=== PATIENT | female | born 1995 | race Caucasian/White ===

== ENCOUNTER 2022-09-16 14:49 | Emergency (ER) | payer OTHER ==
[2022-09-16] MEDS ORDERED: ALBUTEROL NEB 2.5 MG/3 ML INH STA (15:29)
[2022-09-16] MEDS ORDERED: DEXAMETHASONE 10 MG/ML VIAL PO STA (15:29)
[2022-09-16] MEDS ORDERED: CHERRY SYRUP 10 ML UDC PO ONE (15:29)
--- NOTE | 2022-09-16 15:35 | ED Physician Documentation ---
History of Present Illness - Stated complaint Stated Complaint: COUGH/THROAT PX - Chief complaint Chief Complaint: Resp - History obtained from History obtained from: Patient, Family - History of Present Illness Pain level max: 3 Pain level now: 3 - Additonal information Additional information: Patient is a 26-year-old female who presents to the emergency department complaining of cough x1 week. Nasal congestion, sore throat. She states coughing is increased over the past 2 days. She states she had fevers a few days ago but none recently. She does vape. Has never used inhalers. She feels like her chest is tight. She states that she has lost her voice as well. Denies being . Patient states she is not breast-feeding. Has been around people all similar illnesses. She states she had COVID 6 weeks ago Review of Systems Constitutional: denies: Chills, Myalgias Nose: reports: Rhinorrhea / runny nose, Congestion Throat: reports: Sore throat Respiratory: reports: Dyspnea, Cough GI: denies: Nausea, Vomiting, Diarrhea Skin: denies: Rash Musculoskeletal: denies: Neck pain, Back pain Neurologic: denies: Headache PD PAST MEDICAL HISTORY - Past Medical History Past Medical History: No - Past Surgical History Past Surgical History: No - Present Medications Home Medications: Ambulatory Orders Medication Instructions Recorded Confirmed Benzonatate [Tessalon] 200 mg PO TID PRN #30 cap 09/16/22 Cetirizine HCl/Pseudoephedrine 1 each PO BID PRN #30 tab 09/16/22 [Zyrtec-D Tablet] Sertraline HCl 100 mg PO DAILY 09/16/22 09/16/22 predniSONE [Deltasone] 40 mg PO DAILY #10 tablet 09/16/22 - Allergies Allergies/Adverse Reactions: Allergies Allergy/AdvReac Type Severity Reaction Status Date / Time No Known Drug Allergies Allergy Verified 09/16/22 15:06 - Social History Does the pt smoke?: No Smoking Status: Never smoker Does the pt drink ETOH?: No Does the pt have substance abuse?: No - Immunizations Immunizations are current?: Yes PD ED PE NORMAL - Vitals Vital signs reviewed: Yes - General General: Alert and oriented X 3, No acute distress, Well developed/nourished - HEENT HEENT: PERRL, Ears normal, Moist mucous membranes, Pharynx benign - Neck Neck: Supple, no meningeal sign - Cardiac Cardiac: RRR, No murmur, Strong equal pulses - Respiratory Respiratory: No respiratory distress, Other (Mildly diminished breath sounds bilaterally. No respiratory distress) - Abdomen Abdomen: Soft, Non tender, Non distended - Derm Derm: Warm and dry, No rash - Neuro Neuro: Alert and oriented X 3 - Psych Psych: Normal mood, Normal affect Results - Vitals Vitals: Vital Signs - 24 hr 09/16/22 09/16/22 09/16/22 15:03 15:53 16:18 Temperature 36.8 C Heart Rate 80 78 98 Respiratory 16 17 16 Rate Blood Pressure 126/77 119/72 O2 Saturation 99 100 Oxygen O2 Source Room air - Rads (name of study) cxr Relevant Findings:: Final report received, See rad report PD Medical Decision Making - ED course Complexity details: reviewed results, re-evaluated patient, considered differential, d/w patient, d/w family ED course: Patient is well-appearing, nontoxic. Afebrile. No hypoxia. No respiratory distress. She appears to have a viral upper respiratory infection. We will p lace her on Zyrtec-D and Tessalon. We will place her on steroids for the sore throat. She has laryngitis as well. We will have her follow-up with her doctor for further care. No indication for antibiotics at this time. Patient counseled regarding signs and symptoms for which I believe and urgent re- evaluation would be necessary. Patient with good understanding of and agreement to plan and is comfortable going home at this time This document was made in part using voice recognition software. While efforts are made to proofread this document, sound alike and grammatical errors may occur. Departure - Departure Disposition: 01 Home, Self Care Clinical Impression: Viral URI Condition: Good Instructions: ED URI Viral Follow-Up: your,doctor in 1 week [Other] Prescriptions: predniSONE [Deltasone] 40 mg PO DAILY #10 tablet Benzonatate [Tessalon] 200 mg PO TID PRN #30 cap PRN Reason: Cough Cetirizine HCl/Pseudoephedrine [Zyrtec-D Tablet] 1 each PO BID PRN #30 tab PRN Reason: nasal congestion Comments: Your prescriptions were sent to [facility] in [place]. Please follow-up with your doctor for further care. Your x-ray does not show any acute abnormalities today. Please return if you worsen. Discharge Date/Time: 09/16/22 17:30
[2022-09-16 16:18] VITALS: BP 119/72
--- NOTE | 2022-09-16 16:41 | XRAY Report ---
PROCEDURE: Chest 2 View X-Ray INDICATIONS: cough TECHNIQUE: 2 views of the chest were acquired. COMPARISON: None. FINDINGS: Surgical changes and devices: None. Lungs and pleura: No pleural effusions or pneumothorax. Lungs are clear. Mediastinum: Mediastinal contours appear normal. Heart size is normal. Bones and chest wall: No suspicious bony lesions. Overlying soft tissues appear unremarkable. IMPRESSION: Normal two-view chest x-ray Reviewed by: Parveen Solano MD on 09/16/2022 3:40 PM CHERIE Approved by: Parveen Solano MD on 09/16/2022 3:40 PM AKDT Station ID: [id number]
== END 2022-09-16 17:30 | disposition home or self-care (01) ==
LOC: ED 14:49
DX: J06.9 Acute upper respiratory infection, unspecified (principal)
CPT/HCPCS: 71046; 94640; 99283; A9270

== ENCOUNTER 2023-10-03 14:29 | Emergency (ER) | payer OTHER ==
[2023-10-03 14:45] VITALS: BP 133/70; O2SAT 100
[2023-10-03 15:11] LABS: BASOPHILS % (AUTO) 0.4 %; EOSINOPHILS # (AUTO) 0.2 10^3/uL (0.0-0.7); EOSINOPHILS % (AUTO) 2.3 %; HCT - HEMATOCRIT 38.5 % (37.0-47.0); HGB - HEMOGLOBIN 13.2 g/dL (12.0-16.0); LYMPHOCYTES # (AUTO) 2.1 10^3/uL (1.5-3.5); LYMPHOCYTES % (AUTO) 27.3 %; MEAN CORPUSCULAR HEMOGLOBIN 30.5 pg (27.0-31.0); MEAN CORPUSCULAR HGB CONC 34.3 g/dL (32.0-36.0); MEAN CORPUSCULAR VOLUME 88.9 fL (81.0-99.0); MEAN PLATELET VOLUME 8.6 fL (7.9-10.8); MONOCYTES # (AUTO) 0.5 10^3/uL (0.0-1.0); MONOCYTES % (AUTO) 6.9 %; NEUTROPHILS # (AUTO) 4.9 10^3/uL (1.5-6.6); NEUTROPHILS % (AUTO) 62.8 %; PLT - PLATELET COUNT 374 10^3/uL (130-450); RED BLOOD COUNT 4.33 10^6/uL (4.20-5.40); RED CELL DISTRIBUTION WIDTH 11.9 % (12.0-15.0); WHITE BLOOD COUNT 7.7 x10^3/uL (4.8-10.8)
[2023-10-03 15:19] LABS: MAGNESIUM 1.7 mg/dL (1.7-2.3)
[2023-10-03] MEDS: ONDANSETRON ODT 4 MG TABLET TL STA (15:24)
[2023-10-03] MEDS: MECLIZINE 12.5 MG TABLET PO STA (15:24)
[2023-10-03 15:25] LABS: ALBUMIN 4.2 g/dL (3.2-5.5); ALBUMIN/GLOBULIN RATIO 1.9 (1.0-2.2); BILIRUBIN,TOTAL 0.3 mg/dL (0.2-1.0); CALCIUM 9.6 mg/dL (8.5-10.3); CREATININE 1.1 mg/dL (0.6-1.3); POTASSIUM 3.9 mmol/L (3.5-4.5); TOTAL PROTEIN 6.4 g/dL (6.4-8.9)
--- NOTE | 2023-10-03 16:14 | ED Physician Documentation ---
History of Present Illness - Stated complaint Stated Complaint: DIZZINESS,NAUSEA - Chief complaint Chief Complaint: Neuro - Additonal information Additional information: 28-year-old female presents emergency department for 2 to 3 days of nausea vomiting and dizziness. Patient reports when she was 17 she had something very similar she went to her doctor they gave her medication and told her that she had vertigo. Since that episode she has not had this happen again. Patient reports that she does not think she suffers from any seasonal allergies presenting today with dizziness COVID days ago mostly when she turns her head to the right. She says that she will sometimes walk and feel like she is losing her balance feels like the room is shaking or moving around her. She has no unilateral weakness no recent fevers or chills no recent illnesses. PD PAST MEDICAL HISTORY - Past Medical History Past Medical History: Yes Psych: Anxiety - Past Surgical History Past Surgical History: No - Present Medications Home Medications: Ambulatory Orders Medication Instructions Recorded Confirmed Benzonatate [Tessalon] 200 mg PO TID PRN #30 cap 09/16/22 Cetirizine HCl/Pseudoephedrine 1 each PO BID PRN #30 tab 09/16/22 [Zyrtec-D Tablet] Sertraline HCl 100 mg PO DAILY 09/16/22 09/16/22 predniSONE [Deltasone] 40 mg PO DAILY #10 tablet 09/16/22 Meclizine [Antivert] 25 mg PO Q6H PRN 4 Days #32 tablet 10/03/23 Ondansetron Odt [Zofran Odt] 4 mg TL Q6H PRN #10 tablet 10/03/23 - Allergies Allergies/Adverse Reactions: Allergies Allergy/AdvReac Type Severity Reaction Status Date / Time No Known Drug Allergies Allergy Verified 10/03/23 14:37 - Social History Does the pt smoke?: No Smoking Status: Never smoker Does the pt drink ETOH?: No Does the pt have substance abuse?: No - Immunizations Immunizations are current?: Yes PD ED PE NORMAL - Vitals Vital signs reviewed: Yes - General General: Alert and oriented X 3, No acute distress, Well developed/nourished - HEENT HEENT: Atraumatic, PERRL, EOMI, Moist mucous membranes - Neck Neck: Supple, no meningeal sign - Cardiac Cardiac: RRR, No murmur - Respiratory Respiratory: No respiratory distress, Clear bilaterally - Derm Derm: Normal color, Warm and dry, No rash - Neuro Neuro: Alert and oriented X 3, fan balancer 2-12 intact, No motor deficit, No sensory deficit, Normal speech Eye Opening: Spontaneous Motor: Obeys Commands Verbal: Oriented GCS Score: 15 - Psych Psych: Normal mood, Normal affect Results - Vitals Vitals: Vital Signs - 24 hr 10/03/23 10/03/23 14:37 16:42 Temperature 36.8 C 36.8 C Heart Rate 85 85 Respiratory 16 16 Rate Blood Pressure 133/70 H 133/70 H O2 Saturation 100 100 Oxygen O2 Source Room air - Labs Labs: Laboratory Tests 10/03/23 10/03/23 15:04 15:04 WBC 7.7 RBC 4.33 Hgb 13.2 Hct 38.5 MCV 88.9 MCH 30.5 MCHC 34.3 RDW 11.9 L Plt Count 374 MPV 8.6 Neut # (Auto) 4.9 Lymph # (Auto) 2.1 [place] # (Auto) 0.5 Eos # (Auto) 0.2 Baso # (Auto) 0.0 Absolute Nucleated RBC 0.00 Nucleated RBC % 0.0 Sodium 136 Potassium 3.9 Chloride 106 Carbon Dioxide 27 Anion Gap 3.0 L BUN 15 Creatinine 1.1 Estimated GFR (MDRD) 60 L Glucose 90 Calcium 9.6 Magnesium 1.7 Total Bilirubin 0.3 AST 16 ALT 15 Alkaline Phosphatase 60 Total Protein 6.4 Albumin 4.2 Globulin 2.2 Albumin/Globulin Ratio 1.9 Lipase 16 PD Medical Decision Making - ED course ED course: This patient presents with dizziness, most consistent with a peripheral cause, likely BPPV. No history of recent infection so doubt vestibular neuritis. History not consistent with meniere's disease. No history of trauma. No red flag features for central vertigo to include gradual onset, vertical/bidirectional or non-fatigable nystagmus, no focal neurologic findings on exam (including inability to ambulate, ataxia, dysmetria). Presentation not consistent with an acute [employer] infection, vertebral basilar artery insufficiency, cerebellar hemorrhage or infarction, intracranial mass or bleed. Patient was taught how to do Mary Lou's maneuver at home she was given a referral and told to contact Zaria goins, physical therapist [place] meclizine and Zofran to help manage her symptoms at home. Return precautions given we did discuss that I did offer a head CT but patient kindly declined at this time and said that she wanted to try these things at home before doing this. She understands when to report back to the emergency department and other signs and symptoms to watch out for. All questions answered. Departure - Departure Disposition: Home, Self Care Clinical Impression: Vertigo Instructions: ED BPV Vertigo, ED Vertigo Unspecified Prescriptions: Meclizine [Antivert] 25 mg PO Q6H PRN 4 Days #32 tablet PRN Reason: Dizziness Ondansetron Odt [Zofran Odt] 4 mg TL Q6H PRN #10 tablet PRN Reason: Nausea / Vomiting Comments: Thank you for trusting us with your care we have completed labs and I am not seeing any acute abnormalities or findings that would indicate the dizziness that you are experiencing. We did discuss the possibility of doing a head CT but for now he would like to hold off try the meclizine at home and see if this helps it get a better with the Mary Lou's maneuver. As we discussed please have a very low threshold to come back to the emergency department if you are starting to notice any worsening dizziness or other concerning neurological symptoms such as one-sided your body weak, new confusion, or any other concerning symptoms. There is a physical therapist here on the [place] that also helps with Dizziness and vertigo. The name of her company is called [employer]. Her phone number is [phone]. I have sent a prescription of meclizine to [facility] in [place] you can take 25 mg 3 times a day for any vertigo symptoms. Again if it is not improving or not getting any better please come back to the emergency department for head CT. Forms: PCP List Discharge Date/Time: 10/03/23 16:46
== END 2023-10-03 16:46 | disposition home or self-care (01) ==
LOC: ED 14:29
DX: R42 Dizziness and giddiness (principal)
CPT/HCPCS: 36415; 80053; 83690; 83735; 85025; 93005; 99283; A9270; Q0162